=== PATIENT | male | born 1980 | race Two or more races ===

== ENCOUNTER 2018-09-06 04:33 | Emergency (ER) | payer SELFPAY ==
[~2018-09-06] VITALS: Ht 175.3 cm; Wt 81.6 kg
[2018-09-06 04:49] VITALS: BP 126/78
--- NOTE | 2018-09-06 04:56 | NUR ---
TO BED 3 AMBULATORY C/O CHEST WALL PAIN S/P REDO PECTUS HYBRID REPAIR SURGERY 06/20/18. PT AAOX4 NO ACUTE DISTRESS NOTED, RESP EVEN AND UNLABORED. PLACE PT ON CARDIAC MONITORING, CONTINUOUS POX. PENDING ER MD RUDD.
--- NOTE | 2018-09-06 04:59 | NUR ---
PT REFUSED EKG, AWARE
== END 2018-09-06 05:28 | disposition home or self-care (01) ==
LOC: ER 04:47
DX: Z76.0 Encounter for issue of repeat prescription (principal); Z98.890 Other specified postprocedural states; Z88.8 Allergy status to other drugs, medicaments and biological substances